=== PATIENT | male | born 1980 | race Caucasian/White ===

== ENCOUNTER 2023-11-06 10:18 | Emergency (ER) | payer OTHER, SELFPAY ==
[2023-11-06 10:19] VITALS: BP 148/75; PULSE 56; RESP 16; TEMP 36.6; O2SAT 99; BMI 28.6
--- NOTE | 2023-11-06 10:43 | EKG12_ITS ---
Test Reason : CP Blood Pressure : / mmHG Vent. Rate : 054 BPM Atrial Rate : 054 BPM P-R Int : 172 ms QRS Dur : 088 ms QT Int : 414 ms P-R-T Axes : 018 -11 065 degrees QTc Int : 392 ms Sinus bradycardia Nonspecific T wave abnormality Abnormal ECG Confirmed by SHELLY RUTH, SHIRLEY ([id number]), video editor RYANN AVILEZ ([id number]) on 11/07/2023 12:58:27 PM Referred By: MALIK Confirmed By:SHIRLEY BRAVO MD
--- NOTE | 2023-11-06 10:45 | ED.VIS.CHEST ---
HPI History of Present Illness Chief Complaint: Chest Pain Informant: patient and spouse/S.O. Narrative Narrative: 43-year-old male presenting to the emergency room for the evaluation of chest pain. Patient states over the past couple months he has been experiencing some intermittent chest pain described as a deep ache/bruising left side of his chest. He states that this morning he stopped at the gas station to get his usual Dr. Pepper and ice and he got very nauseated lightheaded and the pain in his chest returned. He had a 50 to 60 pound weight loss over the past year. States he urinates frequently and frequently has dry mouth. He is concerned he may have diabetes. He does not have any known medical issues. Patient states that the nausea and lightheadedness also comes along with the chest pain and he vomits upwards of about 3 times per week for no apparent reason. He notes decreased appetite. He notes a familial history of hypertension and diabetes. He notes chronically loose stools. PFSH PFSH Home Medications ?Medication ?Instructions ?Recorded ?Last Taken ?Type amoxicillin 875 mg-potassium 1 tab PO BID 11/06/23 Unknown History clavulanate 125 mg tablet Allergy/AdvReac Type Severity Reaction Status Date / Time No Known Allergies Allergy Verified 11/06/23 10:19 Social History (Updated 11/06/23 @ 10:[address] Pb Stuart, DO) do you think of yourself as: straight/heterosexual current gender identity: male Smoking Status: Current every day smoker tobacco type: cigarettes Smoking packs per day: 1 Smoking cigarettes per day: 20.0 ROS ROS ED Constitutional Constitutional ED: Reports sweats and weight loss; Denies chills or fever(s) Eyes Eyes: Denies change in vision or diplopia ENT ENT ED: Reports other Details: Dry mouth ; Denies ear pain, rhinorrhea or sore throat Cardiovascular Cardiovascular: Reports chest pain; Denies orthopnea, palpitations or racing heartbeat Respiratory/Chest Respiratory/Chest: Denies cough, dyspnea or orthopnea Gastrointestinal Gastrointestinal: Reports diarrhea, nausea and vomiting; Denies abdominal pain Genitourinary Genitourinary ED: Reports urinary frequency; Denies dysuria or hematuria Musculoskeletal Musculoskeletal: Denies arthralgias or myalgias Integumentary Denies abscess or rash Neurologic Neurologic: Denies headache(s) or weakness Psychiatric Psychiatric: Denies anxiety, depression, suicidal ideation or suicidal thoughts Endocrine Endocrinology: Denies polydipsia, polyphagia or polyuria Allergic/Immunologic Allergic/Immunologic ED: Denies mouth swelling, tongue swelling or urticaria EXAM Physical Exam Const Vital Signs: 11/06/23 10:19 11/06/23 12:19 Temperature 97.8 F Temperature Source Temporal Pulse Rate 56 L 52 L Respiratory Rate 16 16 Blood Pressure 148/75 H 128/73 H Blood Pressure Mean 99 91 Pulse Ox 99 99 Oxygen Delivery Method Room Air Positive well nourished and well developed General Appearance ED: well developed HEENT Reports normocephalic, head/scalp atraumatic and moist mucous membranes Eyes PERRL and EOMs intact bilaterally Neck no lymphadenopathy, supple and no JVD Resp normal respiratory effort and clear to auscultation bilaterally Cardio regular rate, regular rhythm and no murmurs GI normal to inspection, nondistended, normoactive bowel sounds and non-tender Palpation: soft Back/Spine no CVA tenderness and normal ROM Extremity normal to inspection General Extremety ED: Negative for edema General Extremity: Negative for edema Neuro oriented x3 and CN's II-XII intact bilaterally Sensorium / Orientation: alert Motor Exam: strength 5/5 throughout Psych mental status grossly normal Mood & Affect: Negative for depressed or tearful Skin no rashes or lesions noted and no wounds MDM MDM MDM Narrative Medical decision making narrative: Differential diagnosis includes but not limited to pancreatitis coronary artery disease/ACS, malignancy, bowel obstruction, pulmonary embolism, aortic dissection, biliary disease White count nonspecific elevated 15.4. Hemoglobin 16.7 platelet count of 296. No left shift seen. BMP shows a glucose of 133. Hemoglobin A1c 6.2. Normal LFTs and lipase. 2 sets of cardiac enzymes are normal. Urinalysis negative. CT of the chest demonstrates no obvious pulmonary embolism or dissection. No pleural effusion no pneumothorax or pneumonia noted. EKG is nonischemic. Blood pressures have been slightly high. He does have a way to monitor these at home. CT of the abdomen pelvis demonstrates small gallstones. He is not tender in the right upper quadrant. Do not think the patient is experiencing biliary colic at this time. I believe the patient needs to follow-up with primary care. We need to have several data points with his blood pressure to assess whether or not he needs to be treated for hypertension. He needs to quit smoking. He needs to make lifestyle modifications and have his hemoglobin A1c reassessed. He needs to speak with primary care about scheduling an outpatient stress test. He has an appointment on the of this month. Patient will return if worsening or concerns. History & Record Review Discussion w/independent historian: Patient and Significant other Lab Data Attestation: I reviewed the patient's lab results. Labs: Laboratory Results - last 24 hr 11/06/23 11/06/23 11/06/23 10:30 12:30 13:16 WBC 15.4 H RBC 5.35 Hgb 16.7 H Hct 48.3 MCV 90.3 MCH 31.2 MCHC 34.6 RDW Std Deviation 43.7 RDW Coeff of Horace 13.2 Plt Count 296 MPV 10.4 Immature Gran % (Auto) 0.400 Neut % (Auto) 56.9 Lymph % (Auto) 33.2 [place] % (Auto) 6.7 Eos % (Auto) 1.4 Baso % (Auto) 1.4 H Absolute Neuts (auto) 8.8 H Absolute Lymphs (auto) 5.12 H Nucleated RBC % 0 Differential Comment Diff Path Review May foll Sodium 136 Potassium 3.5 Chloride 103 Carbon Dioxide 27.0 Anion Gap 6 BUN 9 Creatinine 1.11 Estim Creat Clear Calc 100.96 Est GFR (MDRD) Af Amer 92 Est GFR (MDRD) Non-Af 76 BUN/Creatinine Ratio 8.1 L Glucose 133 H Hemoglobin A1c 6.2 H Calcium 8.9 Total Bilirubin 0.50 Direct Bilirubin 0.15 AST 29 ALT 24 Alkaline Phosphatase 88 Troponin I High Sens 16 18 Total Protein 8.2 Albumin 3.3 Globulin 4.9 H Lipase 24 Urine Color Yellow Urine Clarity Clear Urine pH 6.0 Ur Specific [place] 1.020 Urine Protein Negative Urine Glucose (UA) Normal Urine Ketones Negative Urine Occult Blood Negative Urine Nitrite Negative Urine Bilirubin Negative Urine Urobilinogen Normal Ur Leukocyte Esterase Negative Urine RBC 0 SEEN Urine WBC 0 SEEN Ur Squamous Epith Cells 0 SEEN Urine Bacteria 0 SEEN Urine Mucus 0 SEEN Radiography Diagnostic Testing: Clinical Impression(s) from Imaging Studies Abdomen/Pelvis CT 11/06/23 12:19 IMPRESSION: Small gallstones. Heterogeneous thickening of the urinary bladder wall. Electronically Signed: Abdelrahman Mata MD at 13:19 EDT , Chest CTA 11/06/23 12:19 IMPRESSION: Normal CTA chest examination, without a demonstrated pulmonary embolism or arterial dissection. Electronically Signed: Abdelrahman Mata MD at 13:16 EDT , EKG Initial EKG: Attestation: I personally reviewed and interpreted this EKG as follows: Comments: Sinus bradycardia ventricular rate of 54 bpm. Discharge Plan Triage Chief Complaint: Chest Pain ED Provider: Pb Stuart Dx/Rx/DC Orders Clinical Impression: Hypertension, Pre-diabetes, Chest pain, Tobacco abuse Instructions: ED Chest Pain, Uncertain Cause Prescriptions: No Action amoxicillin-pot clavulanate 875-125 mg tablet 1 tab PO BID Primary Care Provider: Aden Guillermo Referrals: Aden Guillermo PA [Primary Care Provider] - Activity Restrictions/Additional Instructions: As discussed your hemoglobin A1c today is 6.3. This needs to be monitored for the development of diabetes Your blood pressure readings have also been elevated today would recommend you recording your blood pressures and taking them to primary care to see if you need to be started on blood pressure medication You also have small gallstones. While it does not appear that they are causing a significant problem today you may need to have a HIDA scan to evaluate your gallbladder function Please discuss with primary care getting a cardiac stress test. If between now and when you see primary care you have concerns worsening or feel something is not right please return to the emergency department Print Language: Singaporean Disposition Disposition: Home, Self Care
--- NOTE | 2023-11-06 10:46 | ED.RN ---
NO OLD EKGS
[2023-11-06] MEDS: 0.9% Normal Saline (1000mL) 1,000 ML 1000 ML IV (10:50)
[2023-11-06 11:09] LABS: Absolute Lymphocyte Count 5.12 X10^3/uL (0.83-4.51); Absolute Neutrophil Count 8.8 X10^3/uL (2.0-7.7); Basophil# 0.22 X10^3/uL; Basophil% 1.4 % (0-1); Eosinophil# 0.22 X10^3/uL; Eosinophils% 1.4 % (0-5); Hematocrit 48.3 % (40-54); Hemoglobin 16.7 g/dL (13.0-16.5); Lymphocyte # 5.12 X10^3/ul (0.83-4.51); Lymphocyte % 33.2 % (19-41); Mean Corp Hgb Conc 34.6 g/dL (32-36); Mean Corpuscular Hgb 31.2 pg (27.0-32.0); Mean Corpuscular Volume 90.3 fL (80-94); Mean Platelet Vol. 10.4 fl (6.2-12.0); Monocyte# 1.03 X10^3/uL; Monocyte% 6.7 % (0-10); NRBC Flagged by Analyzer 0 % (0-5); Neutrophil # 8.79 X10^3/uL (2.7-7.7); Neutrophil % 56.9 % (47-70); POSITIVE DIFFERENTIAL YES; POSITIVE MORPHOLOGY YES; Platelet Count 296 K/mm3 (150-450); RBC Distribution Width CV 13.2 % (11.6-14.6); RBC Distribution Width SD 43.7 fl (35.1-43.9); Red Blood Count 5.35 M/mm3 (4.6-6.2); White Blood Count 15.4 K/mm3 (4.4-11.0)
[2023-11-06 11:11] LABS: Differential Indicated SCAN CRITERIA MET
[2023-11-06 11:35] LABS: AST(SGOT) 29 U/L (15-37); Alanine Aminotransfer ALT/SGPT 24 U/L (16-61); Albumin, Serum 3.3 g/dL (3.2-5.0); Alkaline Phosphatase 88 U/L (45-117); Anion Gap 6 (5-15); BUN 9 mg/dL (7-18); BUN/Creat Ratio 8.1 RATIO (10-20); Bilirubin, Direct 0.15 mg/dL (0.00-0.30); Calcium,Total 8.9 mg/dL (8.5-10.1); Chloride 103 mmol/L (98-107); Creatinine, Serum 1.11 mg/dL (0.70-1.30); EST Glomerular Filtration Rate 76 mL/min (>60); Est Glom Filt Rate - Afr Amer 92 mL/min (>60); Estimated Creatinine Clearance 100.96 ml/min; Globulin 4.9 g/dL (2.2-4.2); Glucose 133 mg/dL (74-106); Lipase 24 U/L (13-75); Potassium 3.5 mmol/L (3.5-5.1); Protein, Total 8.2 g/dL (6.4-8.2); Sodium Level 136 mmol/L (136-145); Troponin-I HS (w/2H Reflex) 16 pg/mL (3.0-78.0)
[2023-11-06 12:19] VITALS: BP 128/73; PULSE 52; RESP 16; O2SAT 99
--- NOTE | 2023-11-06 12:19 | CT_ITS ---
STUDY: CTA CHEST REASON FOR EXAM: Male, 43 years old. Intermittent chest pain for couple of months. Chest heaviness. RADIATION DOSAGE (If Supplied By Facility): CTDIvol = ( 20.40 ) mGy, DLP = ( 1991.11 ) mGycm TECHNIQUE: The examination was performed with the intravenous administration of IV 100mL Isovue-370. Post-processing of the angiographic images was performed, with multiplanar reformation and 3D reconstruction. Individualized dose optimization techniques were used for this CT. COMPARISON: None. FINDINGS: Normal enhancement of the main pulmonary artery and right and left pulmonary arteries. Normal enhancement of the bilateral peripheral pulmonary arteries. There is no demonstrated pulmonary embolism. Normal thoracic aorta and visualized great vessels. There is no demonstrated aortic dissection. Normal heart and pericardium. Normal mediastinum. Normal hilar regions. Normal visualized trachea and bronchi. The lungs are well expanded. Normal pulmonary parenchyma. Normal pleura. Normal chest wall structures. Normal osseous structures. There is a small hiatal hernia. CT/CTA Chest W/WO Contrast IMPRESSION: Normal CTA chest examination, without a demonstrated pulmonary embolism or arterial dissection. Electronically Signed: Abdelrahman Mata MD at 13:16 EDT ,
--- NOTE | 2023-11-06 12:19 | CT_ITS ---
STUDY: CT ABDOMEN AND PELVIS WITH CONTRAST REASON FOR EXAM: Male, 43 years old. Abdominal pain nausea and weight loss RADIATION DOSAGE (If Supplied By Facility): CTDIvol = ( 20.40 ) mGy, DLP = ( 1991.11 ) mGycm TECHNIQUE: Transaxial images were obtained from the dome of the diaphragm to the symphysis pubis without oral contrast. IV 100mL Isovue-370 was administered. Sagittal and coronal images were reconstructed. Individualized dose optimization techniques were used for this CT. COMPARISON: None. FINDINGS: The visualized lung bases are unremarkable. The visualized portions of the heart are within normal limits. There is decreased attenuation of the liver consistent with steatosis. Tiny gallstones. Normal spleen. Normal pancreas. Normal bilateral adrenal glands. Normal right kidney. Normal left kidney. Normal visualized stomach. Normal small intestine. Moderate amount of fecal material is seen in the colon. The appendix is visualized and appears normal. There is scattered atherosclerotic calcification of the abdominal aorta, without a demonstrated aneurysm. Normal inferior vena cava. Normal retroperitoneum. Heterogeneous thickening of the urinary bladder wall. Small benign-appearing bilateral inguinal lymph nodes. There are mild degenerative changes of the visualized lumbar spine. Grade 1 anterolisthesis of L5 on S1 due to spondylolysis of the pars interarticularis at the L5 vertebrae. CT/Abdomen/Pelvis W IV Cont ONLY IMPRESSION: Small gallstones. Heterogeneous thickening of the urinary bladder wall. Electronically Signed: Abdelrahman Mata MD at 13:19 EDT ,
[2023-11-06 12:35] LABS: Bacteria 0 SEEN /hpf (None Seen); Mucous, Urine 0 SEEN /hpf (<or=2+); Red Blood Cells-Urine 0 SEEN /hpf (0-5); Squamous Epithelial Cells - UA 0 SEEN /hpf (0-5); White Blood Cells 0 SEEN /hpf (0-5)
[2023-11-06 12:38] LABS: Color, Urine Yellow (Yellow); Glucose, Dipstick Normal (Normal); Ketone-Dipstick Negative (Negative); Leukocyte Esterase-Dipstick Negative /ul (Negative); Nitrite-Dipstick Negative (Negative); Occult Blood-Urine Negative /ul (Negative); Protein-Dipstick Negative (Negative); Urine Bilirubin Dipstick Negative (Negative); Urine Clarity Clear (Clear); Urine Urobilinogen Normal (Normal)
[2023-11-06 13:04] LABS: Reflex Troponin-HS? (from REC) Y
[2023-11-06 13:32] LABS: Hemoglobin A1c 6.2 % (3.8-5.6)
[2023-11-06 13:50] LABS: Troponin-I HS 18 pg/mL (3.0-78.0)
[2023-11-06 14:53] VITALS: BP 172/88; PULSE 84; RESP 16; TEMP 36.1; O2SAT 98
[2023-11-07 13:16] LABS: Pathologist Review Reviewed
== END 2023-11-06 14:54 | disposition home or self-care (01) ==
PROVIDERS: Emergency Provider Emergency Medicine; PCP Physician Assistant; Visit Provider Emergency Medicine
DX: R07.9 Chest pain, unspecified (principal); R73.03 Prediabetes; I10 Essential (primary) hypertension; F17.210 Nicotine dependence, cigarettes, uncomplicated; Z82.49 Family history of ischemic heart disease and other diseases of the circulatory system; Z83.3 Family history of diabetes mellitus
CPT/HCPCS: 71275; 74177; 80048; 80076; 81001; 83036; 83690; 84484; 85025; 93005; 96360; 96361; 99285; J7030; Q9967; A4216

== ENCOUNTER → 2023-12-17 | Outpatient (CLI) | payer OTHER, SELFPAY ==
--- NOTE | 2023-12-17 18:44 | CT_ITS ---
STUDY: CT SOFT TISSUE NECK WITH CONTRAST REASON FOR EXAM: Male, 43 years old. right neck mass RADIATION DOSAGE (If Supplied By Facility): CTDIvol = ( 19.28 ) mGy, DLP = ( 679.16 ) mGycm TECHNIQUE: The patient was scanned in a multi-detector CT scanner. High resolution transaxial imaging was performed following intravenous administration of IV 100mL Isovue-300. Sagittal and coronal images were reconstructed. Individualized dose optimization techniques were used for this CT. COMPARISON: None. FINDINGS: There is no subcutaneous mass corresponding to the site of the marker below the patient''s chin on the right side of the neck. The subcutaneous tissue here is essentially symmetric to the soft tissues on the left side of the neck. There is no adenopathy, disruption of the fat planes are evidence of inflammation. Normal bilateral parotid glands. Normal bilateral radiation safety officer spaces. Normal bilateral parapharyngeal spaces. Normal bilateral carotid spaces. Normal bilateral sublingual and submandibular glands and spaces. Normal visualized nasopharynx. Normal retropharyngeal space. Normal perivertebral space. Normal visualized bilateral faucial tonsils. The visualized tongue, tongue base and oropharynx are normal. The visualized cervical lymph nodes (levels I-) are within normal size limits, and maintain normal morphology. There is no demonstrated solid or cystic mass lesion. There is no abnormal contrast enhancement. Normal epiglottis, bilateral vallecula and hypopharynx. The pre-epiglottic and paraglottic adipose spaces are normal. Normal visualized bilateral piriform sinuses, aryepiglottic folds, vocal cords, and arytenoid-cricoid articulations. Normal subglottic trachea. There is diffuse enlargement of the thyroid which is heterogeneous. A dedicated thyroid ultrasound may be of benefit for further evaluation. Normal visualized pulmonary apices. Normal visualized paranasal sinuses. Normal visualized cervical spine. CT/Soft Tissue Neck WITH Contrast IMPRESSION: No suspicious subcutaneous lesion corresponds to the site of the marker on the patient''s right side of the neck. There is no suspicious enhancing lesion, no airway narrowing or deviation, no suspicious bulky adenopathy. No disruption of the fat planes or evidence of an acute inflammatory process Thyromegaly, the thyroid is also heterogeneous without a discrete lesion, a dedicated thyroid ultrasound may be of benefit for further evaluation Electronically Signed: Neel Russell MD at 8:48 EDT ,
[2023-12-17 19:09] LABS: CREATININE FINGERSTICK < 1.0 mg/dL (0.70-1.30); EGFR FINGERSTICK > 60.0000 mL/min (>60)
== END | disposition home or self-care (01) ==
PROVIDERS: PCP Physician Assistant; Referring Provider Physician Assistant; Visit Provider Physician Assistant
DX: R22.1 Localized swelling, mass and lump, neck (principal)
CPT/HCPCS: 70491; Q9967

== ENCOUNTER 2025-02-01 05:24 | Emergency (ER) | payer OTHER, SELFPAY ==
[2025-02-01 05:25] VITALS: BP 166/86; PULSE 68; RESP 18; TEMP 36.5; O2SAT 100
--- NOTE | 2025-02-01 05:49 | EKG12_ITS ---
Test Reason : CP Blood Pressure : */* mmHG Vent. Rate : 76 BPM Atrial Rate : 76 BPM P-R Int : 168 ms QRS Dur : 80 ms QT Int : 374 ms P-R-T Axes : 38 -15 74 degrees QTcB Int : 420 ms Normal sinus rhythm Normal ECG Confirmed by SHELLY RUTH, SHIRLEY ([id number]), videotape editor RYANN AVILEZ ([id number]) on 02/03/2025 7:26:41 AM Referred By: Confirmed By: SHIRLEY BRAVO MD
[2025-02-01 05:57] LABS: Hematocrit 46.1 % (40-54); Hemoglobin 16.5 g/dL (13.0-16.5); Immature Granulocytes Count 0.070 X10^3/uL (0.0-0.0); Mean Corp Hgb Conc 35.8 g/dL (32-36); Mean Corpuscular Volume 93.3 fL (80-94); Mean Platelet Vol. 10.8 fl (6.2-12.0); NRBC Flagged by Analyzer 0 % (0-5); Platelet Count 311 K/mm3 (150-450); RBC Distribution Width CV 13.1 % (11.6-14.6); RBC Distribution Width SD 44.9 fl (35.1-43.9); Red Blood Count 4.94 M/mm3 (4.6-6.2); White Blood Count 13.5 K/mm3 (4.4-11.0)
--- NOTE | 2025-02-01 05:58 | RAD_ITS ---
PROCEDURE: CHEST PA AND LATERAL 02/01/2025 REASON FOR EXAM: CHEST PAIN TECHNIQUE: Procedure Code: RADCXR Modality: DX Procedure: CHEST PA AND LATERAL COMPARISON: None FINDINGS: Heart size and mediastinal configuration are within normal limits. There is no focal infiltrate or consolidation. There is no pneumothorax or effusion. There is no acute bony abnormality. There is no visible atherosclerosis. RAD/Chest PA and Lateral IMPRESSION: No acute process is identified in the chest. Reading Location: [facility]
[2025-02-01 06:17] LABS: Magnesium 2.2 mg/dL (1.5-2.2); Prothrombin Time (Protime)PT. 13.4 SECONDS (11.7-14.9); Troponin T High Sensitivity 14 ng/L (<=22)
[2025-02-01 06:18] LABS: Anion Gap 11 (5-15); BUN 10 mg/dL (4-19); BUN/Creat Ratio 10.0 RATIO (10-20); Calcium,Total 9.3 mg/dL (7.6-11.0); Carbon Dioxide 22.8 mmol/L (21.0-32.0); Chloride 103 mmol/L (98-108); Estimated Creatinine Clearance 113.27 ml/min (50-250); Glucose 156 mg/dL (70-99); Partial Thromboplast Time 33.2 Seconds (24.1-36.2); Potassium 3.9 mmol/L (3.3-5.1)
[2025-02-01 06:25] VITALS: BP 136/68; PULSE 54; RESP 18; O2SAT 98
[2025-02-01 06:34] LABS: D-Dimer Quantitative (DVT/PE) 0.27 FEU/ug/m (0.27-0.49)
--- NOTE | 2025-02-01 07:03 | EX.ED.DYSGE1 ---
HPI History of Present Illness Chief Complaint: Chest Pain Informant: patient Narrative Narrative: Patient is a 44-year-old male with past medical history of hypertension and tobacco use. He states that yesterday he noticed a vague upper chest discomfort. He states that it came on around 2 or 3 PM while at rest. He states it was mild in nature. He reports it did not completely resolve but was not severe enough that it kept him from performing his daily activities or sleeping. However this morning he noted pain traveling to the left arm and he felt like the chest discomfort was more intense. He states there is no associated nausea vomiting diaphoresis or shortness of breath. He does report a family history of cardiac disease in his parents. He denies any recent travel surgery or history of DVT/PE. However with concern that the worsening symptoms could be cardiac in nature he presents for evaluation [facility] Medical History Chest pain Gallstone Tobacco abuse Pre-diabetes Hypertension Home Medications ?Medication ?Instructions ?Recorded ?Last Taken ?Type aspirin 81 mg tablet,delayed 81 mg PO DAILY 12/12/23 Unknown History release lisinopril 10 mg tablet 10 mg PO DAILY 12/12/23 Unknown History levothyroxine 125 mcg tablet 125 mcg PO DAILY 02/01/25 Unknown History lisinopril 20 mg tablet 20 mg PO DAILY 02/01/25 Unknown History methocarbamol 500 mg tablet 1,000 mg (2 x 500 mg) PO 4X/DAY 02/01/25 Unknown Rx PRN Muscle pain/spasm #56 tabs Allergy/AdvReac Type Severity Reaction Status Date / Time No Known Allergies Allergy Verified 02/01/25 05:25 Surgical History History of knee surgery Social History Smoking Status: Current every day smoker tobacco type: cigarettes substance use type: marijuana caffeine: Yes (two sodas daily) ROS ROS ED Constitutional Constitutional ED: Denies chills or fever(s) Eyes Eyes: Denies blurry vision or change in vision ENT ENT ED: Denies sore throat Cardiovascular Cardiovascular: Reports chest pain; Denies palpitations or racing heartbeat Respiratory/Chest Respiratory/Chest: Denies cough or dyspnea Gastrointestinal Gastrointestinal: Denies abdominal pain, diarrhea, nausea or vomiting Musculoskeletal Musculoskeletal: Reports other Details: Positive left arm pain ; Denies back pain or neck pain Integumentary Denies Abrasions or rash Neurologic Neurologic: Denies headache(s) Hematologic/Lymphatic Hematologic/Lymphatic: Denies easy bleeding or easy bruising EXAM Physical Exam Const Vital Signs: 02/01/25 05:25 02/01/25 05:25 02/01/25 06:25 Temperature 97.7 F L Temperature Source Oral Pulse Rate 68 54 L Respiratory Rate 18 18 Respiratory Effort Normal Non-Labored Blood Pressure 166/86 H 136/68 H Blood Pressure Mean 112 90 Pulse Ox 100 98 Oxygen Delivery Method Room Air Room Air 02/01/25 07:45 02/01/25 08:00 Temperature Temperature Source Pulse Rate 54 L 56 L Respiratory Rate 21 H 19 H Respiratory Effort Blood Pressure 110/64 122/69 H Blood Pressure Mean 78 86 Pulse Ox 98 98 Oxygen Delivery Method Room Air Positive well nourished and well developed General Appearance ED: well developed; Negative for pallor HEENT HEENT Narrative: Normocephalic atraumatic Eyes PERRL and EOMs intact bilaterally General Eye ED: Negative for scleral icterus Neck supple and no JVD Chest Wall Chest Narrative: No bony deformity or crepitance noted with palpation of the chest wall There is mild reproducible pain with palpation No overlying soft tissue changes to suggest trauma or infection Resp normal respiratory effort Resp Narrative: Breath sounds are slight diminished throughout with faint expiratory wheeze and rhonchi consistent with history of smoking but no signs of respiratory distress Cardio regular rate and regular rhythm Rate: other Other Details: Regular rate and rhythm without murmurs rubs or gallop Radial and carotid pulses are equal and symmetric GI normal to inspection, nondistended, normoactive bowel sounds, non-tender, non-distended and no masses GI Narrative: No voluntary guarding or rigidity or pulsatile mass No peritoneal signs or fluid wave Auscultation: normoactive bowel sounds Palpation: soft Extremity normal to inspection Extremity Narrative: No asymmetric edema no pitting edema negative Homans' sign bilaterally Left upper extremity is neurovascularly intact. There is no obvious bony deformity or joint effusion. Compartments are soft and compressible going against compartment syndrome. No overlying soft tissue changes to suggest trauma or infection. Neuro oriented x3, CN's II-XII intact bilaterally and no sensory deficits noted Sensorium / Orientation: alert Motor Exam: strength 5/5 throughout Psych mental status grossly normal Skin no rashes or lesions noted and no wounds General Skin Exam: Negative for jaundice or pallor MDM MDM MDM Narrative Medical decision making narrative: Patient arrived to the ER hypertensive but has a past medical history of this and otherwise vitals are stable. He reported a vague anterior chest pain with now radiation into the left arm. He does have a family history of cardiovascular disease and has moderate risk factors as he is a man of the age of 38 with tobacco use and hypertension. Secondary to this a cardiac workup was obtained. The patient denied any recent travel or surgery or history of DVT/PE but with his hypertension I did feel appropriate to add a D-dimer to rule out dissection and/or PE. The D-dimer is normal going against. The chest x-ray revealed no acute lung pathology such as pneumonia or pneumothorax there was no widening mediastinum which would also go against a dissection. The white count is slightly elevated which is nonspecific and there is no pneumonia on chest x-ray to suggest infection. The delta troponin was 12 which is below the transition value of 6 of the cardiac algorithm going against ACS and he was kept on the telemetry monitor and there was no cardiac dysrhythmia while he was in the ER. On reevaluation he does report improvement of symptoms despite no medication being given and therefore with overall negative workup and improvement of his chest discomfort he is otherwise safe for discharge. History & Record Review Discussion w/independent historian: Patient Lab Data Attestation: I reviewed the patient's lab results. Labs: Laboratory Results - last 24 hr 02/01/25 02/01/25 05:29 07:28 WBC 13.5 H RBC 4.94 Hgb 16.5 Hct 46.1 MCV 93.3 MCH 33.4 H MCHC 35.8 RDW Std Deviation 44.9 H RDW Coeff of Horace 13.1 Plt Count 311 MPV 10.8 Immature Gran % (Auto) 0.500 Neut % (Auto) 59.9 Lymph % (Auto) 24.5 [place] % (Auto) 9.2 Eos % (Auto) 4.6 Baso % (Auto) 1.3 H Absolute Neuts (auto) 8.1 H Absolute Lymphs (auto) 3.31 Nucleated RBC % 0 PT 13.4 INR 1.0 APTT 33.2 D-Dimer Quant (PE/DVT) 0.27 Sodium 137 Potassium 3.9 Chloride 103 Carbon Dioxide 22.8 Anion Gap 11 BUN 10 Creatinine 1.00 Estim Creat Clear Calc 113.27 Est GFR (MDRD) Non-Af 94 BUN/Creatinine Ratio 10.0 Glucose 156 H Calcium 9.3 Magnesium 2.2 Troponin T High Sens 14 Troponin T Hi Sens 2 Hr 12 Radiography Diagnostic Testing: Clinical Impression(s) from Imaging Studies Chest X-Ray 02/01/25 05:58 IMPRESSION: No acute process is identified in the chest. Reading Location: [facility] Chest x-ray as interpreted by the emergency medicine physician reveals no acute infiltrate pneumothorax pleural effusion or widening of the mediastinum Discharge Plan Triage Chief Complaint: Chest Pain ED Provider: Calixto Sheikh Dx/Rx/DC Orders Clinical Impression: Nonspecific chest pain, Hypertension, Tobacco use Instructions: ED Chest Pain, Uncertain Cause Prescriptions: New methocarbamol 500 mg tablet 1,000 mg PO 4X/DAY PRN (Reason: Muscle pain/spasm) Qty: 56 0RF No Action lisinopril 10 mg tablet 10 mg PO DAILY aspirin 81 mg tablet,delayed release (DR/EC) 81 mg PO DAILY lisinopril 20 mg tablet 20 mg PO DAILY levothyroxine 125 mcg tablet 125 mcg PO DAILY Stand Alone Forms: Work / School Excuse Primary Care Provider: Aden Guillermo Referrals: Aden Guillermo PA [Primary Care Provider, Urgent Care] Activity Restrictions/Additional Instructions: Your workup today revealed no signs of active heart damage. Your D-dimer was normal going against a blood clot or dissection/tear. Your chest x-ray did not reveal any signs of pneumonia. Please follow-up with your family doctor for repeat evaluation and return to the ER should you have any further concerns. Print Language: Singaporean Disposition Disposition: Home, Self Care
[2025-02-01 07:45] VITALS: BP 110/64; PULSE 54; RESP 21; O2SAT 98
[2025-02-01 08:00] VITALS: BP 122/69; PULSE 56; RESP 19; O2SAT 98
[2025-02-01 08:21] LABS: Troponin T High Sens 2 HR 12 ng/L (<=22)
[2025-02-01 08:31] VITALS: BP 124/78; PULSE 64; RESP 18; TEMP 36.6; O2SAT 99
== END 2025-02-01 08:31 | disposition home or self-care (01) ==
PROVIDERS: Emergency Provider Emergency Medicine; PCP Physician Assistant; Visit Provider Emergency Medicine
DX: R07.89 Other chest pain (principal); I10 Essential (primary) hypertension; Z79.82 Long term (current) use of aspirin; Z79.899 Other long term (current) drug therapy; F17.210 Nicotine dependence, cigarettes, uncomplicated
CPT/HCPCS: 71046; 80048; 83735; 84484; 85025; 85379; 85610; 85730; 93005; 99283; A4216